=== PATIENT | male | born 2000 | race Caucasian/White ===

== ENCOUNTER 2019-12-20 16:35 | Outpatient (REF) | payer BC, SELFPAY ==
[2019-12-22 10:26] LABS: Syphilis Serology (RPR) Negative (Negative)
[2019-12-22 11:00] LABS: Hepatitis C Ab w Rflx HCV PCR Negative (Negative)
[2019-12-22 11:50] LABS: HIV-1/2 Ag & Ab Screen Negative (Negative)
[2019-12-22 13:53] LABS: GC Result Negative (Negative)
[2019-12-22 15:50] LABS: Chlamydia Result Positive (Negative)
== END 2019-12-20 16:55 ==
LOC: NCHCN 16:35
PROVIDERS: PCP Registered Nurse; Visit Provider Registered Nurse
DX: Z20.2 Contact with and (suspected) exposure to infections with a predominantly sexual mode of transmission (principal); Z11.4 Encounter for screening for human immunodeficiency virus [HIV]; Z11.3 Encounter for screening for infections with a predominantly sexual mode of transmission; Z11.59 Encounter for screening for other viral diseases
CPT/HCPCS: 86803; 87389; 87491; 87591; 86592

== ENCOUNTER 2020-07-21 21:46 | Outpatient (REF) | payer BC, SELFPAY ==
[2020-07-25 23:14] LABS: Patient Race White; SARS-CoV-2 RNA Undetected (Undetected); SARS-CoV-2 Specimen Source Nasopharynx
== END 2020-07-21 22:06 ==
LOC: NCHCN 21:46
PROVIDERS: PCP Registered Nurse; Visit Provider Family Medicine
DX: Z20.828 Contact with and (suspected) exposure to other viral communicable diseases (principal)
CPT/HCPCS: U0003